=== PATIENT | female | born 1940 | race Two or more races ===

== ENCOUNTER 2018-03-07 11:34 | Emergency (ER) | payer MEDICAID, OTHER ==
[~2018-03-07 11:34] MED LIST: BRIM0.2S2 OP; BRIN1SUS EACHEYE; CARB10TA7 PO; METF-370 PO; QUET100T46 PO; QUET50TA PO; VALS40TA2 PO
[2018-03-07 13:13] LABS: Basophils # (auto) 0 uL; Basophils % (auto) 0.6 % (0.0-2.0); Eosinophils # (auto) 0.5 uL; Eosinophils % (auto) 5.8 % (0.0-7.0); Hematocrit 32.9 % (36.0-46.0); Hemoglobin 10.7 g/dL (12.2-16.2); Lymphocytes # (auto) 2.4 uL; Mean Corpuscular Hemoglobin 29.1 pg (28.0-32.0); Mean Corpuscular Hgb Conc. 32.7 g/dL (32.0-36.0); Mean Corpuscular Volume 89.1 fL (80.0-100.0); Monocytes # (auto) 0.4 uL; Neutrophils # (auto) 5.1 uL; Neutrophils % (auto) 60.6 % (37.0-80.0); Nucleated Red Blood Cells % 0.1 %; Platelet Count (auto) 375 10^3/uL (140-450); Red Blood Cells 3.69 10^6/uL (4.0-5.20); White Blood Cell 8.5 10^3/uL (4.4-10.8)
[2018-03-07 13:29] LABS: Partial Thromboplastin Time 28.2 sec (23.78-33.04); Prothrombin Time 10.7 sec (9.27-12.13)
[2018-03-07 13:49] LABS: Alanine Aminotransferase 11 U/L (13-56); Alkaline Phosphatase 79 U/L (45-117); Anion Gap 6 (5-15); Aspartate Aminotransferase 13 U/L (15-37); BUN/Creatinine Ratio 27.6; Bilirubin, Total 0.3 mg/dL (0.2-1.0); Blood Urea Nitrogen 16 mg/dL (7-18); Calcium 8.7 mg/dL (8.5-10.1); Carbon Dioxide 28 mmol/L (21-32); Chloride 106 mmol/L (98-107); GFR African American 129 mL/min; GFR Non-African American 107 mL/min; Glucose 145 mg/dL (74-106); Potassium 3.9 mmol/L (3.5-5.1); Sodium 140 mmol/L (136-145); Total Protein 7.3 g/dL (6.4-8.2)
[2018-03-07 14:52] LABS: Urine Amorphous Crystal MOD /hpf (None Seen); Urine Bacteria NONE SEEN /hpf (None Seen); Urine Blood 3+ /uL (Negative); Urine Mucus FEW (None Seen); Urine Specific Gravity 1.017 (1.001-1.035); Urine WBC 116 /hpf (0 - 5)
[2018-03-07] MEDS ORDERED: LEVOFLOXACIN 500MG 100 ML IV ONE (15:30)
[2018-03-07 17:58] VITALS: BP 139/88
[2018-03-07] MEDS ORDERED: ACETAMINOPHEN 650 mg PER 20 mL UD PO ONE (19:15)
== END 2018-03-07 19:26 | disposition home or self-care (01) ==
LOC: ER 11:34 → EDBD 11:34 → ER 19:26
DX: N39.0 Urinary tract infection, site not specified (principal); E11.9 Type 2 diabetes mellitus without complications; I10 Essential (primary) hypertension; R41.82 Altered mental status, unspecified; G20 Parkinson's disease
CPT/HCPCS: 36415; 51702; 80053; 81001; 84484; 85025; 85610; 85730; 87086; 87088; 87186; 96365; 99284; J1956

== ENCOUNTER 2018-04-22 11:38 | Emergency (ER) | payer OTHER ==
[~2018-04-22] VITALS: Ht 154.9 cm; Wt 45.4 kg
[2018-04-22 15:01] LABS: Urine Bacteria MANY /hpf (None Seen); Urine Blood 2+ /uL (Negative); Urine Mucus FEW (None Seen); Urine Specific Gravity 1.017 (1.001-1.035); Urine WBC 273 /hpf (0 - 5); Urine WBC Clumps PRESENT /hpf (None Seen)
[2018-04-22] MEDS ORDERED: CIPROFLOXACIN HCL 500 MG TAB PO ONE (15:30)
[2018-04-22 16:01] VITALS: BP 140/72
[2018-04-29] MEDS ORDERED: CIPR-173 PO (15:02)
[2018-04-29] MEDS ORDERED: BIMA0.01 EACHEYE (15:02)
== END 2018-04-22 17:56 | disposition home or self-care (01) ==
LOC: ER 11:38 → EDBD 11:38 → ER 17:56
DX: T83.018A Breakdown (mechanical) of other urinary catheter, initial encounter (principal); N39.0 Urinary tract infection, site not specified; E11.9 Type 2 diabetes mellitus without complications; I10 Essential (primary) hypertension; Z87.442 Personal history of urinary calculi
CPT/HCPCS: 51702; 81001